=== PATIENT | male | born 1970 | race Caucasian/White ===

== ENCOUNTER 2020-02-21 09:31 | Day surgery (SDC) | payer OTHER, SELFPAY ==
[~2020-02-21] VITALS: Ht 170.2 cm; Wt 95.3 kg
[2020-02-21 12:32] LABS: PROTHROMBIN TIME 9.9 secs (10.8-13.4)
[2020-02-21] MEDS ORDERED: LIDOCAINE 2% 1000 MG/50 ML VIAL INJ ONE (12:35)
[2020-02-21] MEDS ORDERED: fentaNYL citrate 0.05 MG/ML VIAL ONE (13:02)
[2020-02-21] MEDS ORDERED: fentaNYL citrate 0.05 MG/ML VIAL IVP ONE (13:20)
[2020-02-21] MEDS ORDERED: MORPHINE SULFATE 4 MG/ML SYR IVP SCH (13:30)
[2020-02-21] MEDS ORDERED: MORPHINE SULFATE 4 MG/ML SYR IVP ONE (13:35)
== END 2020-02-21 14:05 | disposition home or self-care (01) ==
LOC: MDS 09:31 → MFCC 09:31 → MDS 14:05
PROVIDERS: ATTEND Internal Medicine Gastroenterology
DX: R94.5 Abnormal results of liver function studies (principal); Z79.01 Long term (current) use of anticoagulants; Z11.59 Encounter for screening for other viral diseases
CPT/HCPCS: 36415; 47000; 76942; 85610; 85730; J2001; J2270; J3010; Q0092; U0003